=== PATIENT | male | born 1945 | race Caucasian/White ===

== ENCOUNTER 2018-10-16 23:34 | Emergency (ER) | payer MEDICARE, BC ==
[~2018-10-16] VITALS: Ht 170.2 cm; Wt 80.0 kg
[2018-10-17 01:03] VITALS: BP 97/55
== END 2018-10-17 01:06 | disposition home or self-care (01) ==
LOC: ED 10-17 00:07
DX: L50.9 Urticaria, unspecified (principal); T78.40XA Allergy, unspecified, initial encounter; X58.XXXA Exposure to other specified factors, initial encounter; I10 Essential (primary) hypertension
CPT/HCPCS: 93005; 94640; 96374; 96375; 99283; J2930; J3490